=== PATIENT | male | born 1970 | race Caucasian/White ===

== ENCOUNTER 2017-02-14 20:08 | Emergency (ER) | payer MEDICARE, MEDICAID ==
[~2017-02-14] VITALS: Ht 165.1 cm; Wt 56.0 kg
[2017-02-14 20:16] VITALS: BP 115/83; PULSE 80; RESP 18; O2SAT 98
--- NOTE | 2017-02-14 21:36 | ED.REPORT ---
HPI-Extremity Problem Lower Date of Service Feb 14, 2017 ED Provider: Krzysztof Schumacher MD A 46 year old male with a history of right hip hip replacement 6 years ago presents to the ED complaining of right hip pain. He cannot recall doing anything that would have caused the pain. Pain is exacerbated by movement and he reports that cold temperatures can normally cause his right hip to lock up. He has not taken any Tylenol, Ibuprofen or any other pain medication. He denies baseline pain. Nursing Notes Stated Complaint: POSS TITANIUM SLIPPED IN HIP Chief Complaint: Extremity Trauma Nursing Notes Reviewed: Yes Allergies: Coded Allergies: No Known Allergies (Unverified , 02/14/17) Scheduled Meloxicam (Meloxicam) 7.5 Mg Tablet 7.5 MG PO BID General Time Seen by MD: 21:29 Chief Complaint Hip injury right Hx Obtained From: Patient Arrived By: Walk-in Onset Occurred: 1 - 4 hours ago Symptom Duration: Since onset Location: : Hip right Severity: Current: Moderate Severity: Maximum: Moderate Recent Healthcare: No recent doctor visit Similar Sx Previous: Yes Past Medical History Past Medical History Bone disease. Right hip replacement, patient reports that it came out when he sneezed at [employer]. Denies baseline right hip pain. Past Surgical History Right hip replacement 6 years ago. Denies left hip replacement. Social History Other Social History: Good social support Ambulatory Status Independent Review of Systems Constitutional: Denies: Chills, Fever Musculoskeletal: Reports: Extremity pain (right hip.) Complete sys rev & neg: except as marked. Physical Exam Initial Vital Signs Vital Signs (First) Date Time Temp Pulse Resp B/P Pulse Ox O2 Delivery O2 Flow Rate FiO2 02/14/17 20:16 37.1 80 18 115/83 98 Room Air Initial VS: Reviewed, Vital signs normal Respiratory: Breath sounds normal, Clear to auscultation, No respiratory distress Cardiovascular: Regular rate & rhythm, Heart sounds normal, Intact distal pulses Abdomen / GI: Soft, Non-tender, No guarding, No rebound Right Hip: Positive: Tenderness present... (Patient has a little tenderness to anterior right hip. ROM is decreased because of discomfort. Distal neurovascular is intact.) Ankle / Foot: Atraumatic, No swelling, No edema General/Constitutional: Awake, Alert Skin: Color NL, Warm, Dry Neurologic: Oriented X3, Speech NL Head / Eyes: Atraumatic, Normocephalic, PERRL, EOMI Interpretation & Diagnostics X-Ray Interpretation Xray Interpretation: IMPRESSION: Expected alignment of right total hip arthroplasty. Mild right hip periarticular heterotopic ossification Dictated by: Meng Londono M.D. on 02/14/2017 at 21:46 Approved by: Meng Londono M.D. on 02/14/2017 at 21:47 Right Hip XRay-WET READ by ED physician IMPRESSION: Titanium has not slipped. No dislocation, no fractures. 02/14/2017, 2137. Interpretation / Wet Read by: Wet read ED physician, Interpret - Radiologist Re-Eval/Medical Decision Med Decision/Clinical Course 46-year-old who presents with concern for right hip dislocation. He has a two- part prosthesis and no evidence or history of trauma. X-ray is normal. His symptoms are likely related to soft tissue injury such as tendinitis or bursitis. Source of Hx: Old records Re-Evaluation/Progress : Time of Eval: 21:37 Re-Evaluation/Progress Note: Explained normal XRay results. Explained diagnosis, and plan for discharge. Patient understands and agrees with the plan. All questions addressed. Counseled Regarding: Diagnosis, Need for follow-up, When/why to return to ED Discharge & Departure Impression: Primary Impression: Right hip pain Disposition: Home Discharge Condition All VS Reviewed: Yes Condition: Stable Patient Instructions: Meloxicam (By mouth) Additional Instructions: The x-ray shows that the hip is in the proper position and there are no bony abnormalities. I suspect that you have a tendinitis or bursitis. Meloxicam 7.5 mg once or twice daily as needed for pain, #30 prescribed. Follow up at the [facility] orthopedics if you have continued pain with this hip. Referrals: [facility] (PCP) Coy Attestation Portions of this note were transcribed by Darryl Lopez. I, Dr. Schumacher personally performed the history, physical exam and medical decision-making; I reviewed and confirmed the accuracy of the information in the transcribed note. Signed by: Coy Arango, 02/14/2017, 7007. copies to: Krzysztof Shetty MD Feb 14, 2017 21:36 Darryl Lopez Feb 14, 2017 21:42
[2017-02-14] MEDS ORDERED: MELO-259 PO (21:42)
--- NOTE | 2017-02-14 21:49 | DRSVH ---
PROCEDURE: X-RAY RIGHT HIP COMPLETE, MINIMUM TWO VIEWS ([id number]) INDICATIONS: pain TECHNIQUE: 2 views of the hip were acquired. COMPARISON: None. FINDINGS: Bones: No fractures or dislocations. No suspicious bony lesions. The visualized pelvic ring appear s intact. Intact right hip total hip arthroplasty in expected alignment. No evidence of hardware loo sening. Periarticular heterotopic ossification Soft tissues: No suspicious soft tissue calcifications or masses. IMPRESSION: Expected alignment of right total hip arthroplasty. Mild right hip periarticular heterotopic ossification Dictated by: Meng Londono M.D. on 02/14/2017 at 21:46 Approved by: Meng Londono M.D. on 02/14/2017 at 21:47
== END 2017-02-14 22:42 | disposition home or self-care (01) ==
LOC: SED 20:08
DX: M25.551 Pain in right hip (principal); Z96.641 Presence of right artificial hip joint